=== PATIENT | female | born 1955 | race Caucasian/White ===

== ENCOUNTER 2016-08-15 15:19 | Emergency (ER) | payer MEDICARE, MEDICAID ==
[2016-08-15] MEDS ORDERED: NITROGLYCERINE 2 % OINTMENT PACK TOP STA (15:48)
[2016-08-15 15:55] VITALS: BMI 28.3
--- NOTE | 2016-08-15 15:55 | EDPRACDOC ---
- General Information Stated Complaint: CHEST PAIN Time Seen by Provider: 08/15/16 15:37 Information Source: Patient Mode of Arrival: Ambulance Home Medications: Home Medications Aspirin [Aspirin EC] 81 mg PO DAILY 03/22/15 Atorvastatin Calcium [Lipitor] 80 mg PO HS 03/22/15 Carvedilol [Coreg] 12.5 mg PO BID 03/22/15 Clopidogrel Bisulfate [Plavix] 75 mg PO DAILY 03/22/15 Lisinopril [Zestril] 2.5 mg PO DAILY 03/22/15 Potassium Chloride [Klor-Con M20] 40 meq PO DAILY 03/22/15 Omeprazole 40 mg PO DAILY 11/23/15 Nitroglycerin [Nitrostat] 0.4 mg SL [id number] PRN 12/29/15 Allergies/Adverse Reactions: Allergies Allergy/AdvReac Type Severity Reaction Status Date / Time Sulfa (Sulfonamide Allergy Severe Nausea/Vomi Verified 07/08/16 10:41 Antibiotics) ting [Sulfa(Sulfonamide Antibiotics)] naproxen AdvReac Sweating Verified 07/08/16 10:41 - History of Present Illness HPI: PT PRESENTS WITH SUBSTERNAL CHEST PAIN WHICH BEGAN AROUND 1200 TODAY. GIVEN ASPIRIN BY EMS. NO NITROGLYCERIN. SHE REPORTS PAIN LIKE PRIOR NV'S. SHE HAS 8 STENTS WHICH HAVE BEEN PLACED SINCE 2014 AT [place]. Chest Pain Location: Reports: Substernal Symptoms Occur: Reports: At Rest Cardiac History of: Reports: Similar Pain in Past, [place], Cardiac Cath, Stress Test , Stent Pain Status: Present Now Pain Description: Reports: Pressure Pain Severity: Moderate Pain Worsens With: Reports: Nothing Pain Improves With: Reports: Nothing Associated Signs and Symptoms: Reports: SOB. Denies: Abdominal Pain, Vomiting ED Past Medical History - History Reviewed Yes Nurses notes reviewed and agree except as marked - Patient Medical History Cardiac History: Reports: Coronary Artery Disease, Hypertension, Heart Attack, Cardiac Catheterization (PCTI X 5), Hypercholesterolemia, Syncope (10/28/13) Respiratory History: Reports: COPD GI/ History: Reports: Urinary Tract Infection, Gastroesophageal Reflux Musculoskeletal History: Reports: Arthritis, Osteoarthritis (With degenerative joint disease) Psychological History: Reports: Depression, Anxiety. Denies: Substance Use Disorder Systemic History: Reports: Cancer, Anemia ( CHILD) Additional Past Medical History: Chronic Back Pain Surgical History: Reports: Hysterectomy, Angioplasty, Cardiac Catheterization ( PCTI X 5), Other (Bilateral tubal ligation.) - Family Medical History Reports: Diabetes (GRANDMOTHER), Cancer ([facility]UN[facility]- BREAST CANCER), Cardiac Disorders (Father with coronary artery disease, age 59.) - Social Medical History Smoking Status: Former smoker Social History: Denies: Substance Use Disorder Lives In: Home EDM Review of Systems - Review of Systems ROS Negative Except as Marked: Yes All systems reviewed and were negative except as marked Constitutional: negative: Fever Respiratory: Shortness of Breath Cardiovascular: Chest Pain Gastrointestinal: negative: Pain, Vomiting Neurological: Headache - Physical Exam Constitutional: Alert Oriented to: Time, Person, Place Last recorded Vital Signs: Last Vital Signs Temp Pulse 66 08/15/16 15:42 Resp 20 08/15/16 15:42 BP 157/83 08/15/16 15:42 Pulse Ox 97 08/15/16 15:42 Oxygen Pulse Oxygen Saturation 97 O2 Device Room Air Oxygen Flow Rate Fraction of Inspired Oxygen ( FIO2) - HEENT Head: negative: Deformity, Laceration Eye Exam: negative: Conjunctival Injection, Pale Conjunctiva Nose: negative: Congestion, Discharge Neck: negative: Limited ROM - Respiratory/Cardiovascular Respiratory: Normal - CTA. negative: Accessory Muscle Use, Diminished, Tachypnea Cardiovascular: negative: Bradycardia, Tachycardia, Irregular - GI Auscultation: Normal Palpation: Normal Tenderness: Non tender - Musculoskeletal Extremities: Pedal Pulse (PALPABLE), Radial Pulse (PALPABLE). negative: Calf Tenderness - Integumentary Skin: Warm, Dry. negative: Rash - Neurologic Memory Impaired: Normal Motor Function: Normal Mood Description: Anxious, Appropriate Thought: Coherent Perception: Normal ED Chest Pain Exam - Respiratory/Cardiovascular Chest Palpation: negative: Tender, Reproduces Pain - Action Patient received Aspirin within last 24 hours?: Yes ASA given in the ED: No - Results 08/15/16 15:36 08/15/16 15:36 - EKG EKG #1 EKG Time: 15:30 -: Yes EKG interpreted by me Rate: bpm: 72 [place]: Normal Rhythm: NSR Block: None Hypertrophy: None ST: Normal Decision Time to Discharge: 19:22 - Departure Yes I personally saw and evaluated the patient. Disposition: Home Condition: Stable Final Diagnosis: Chest pain Qualifiers: Chest pain type: unspecified Qualified Code(s): R07.9 - Chest pain, unspecified Instructions: Chest Pain (ED), Chest Wall Pain Education/Counseling Given To: Patient Education/Counseling Given Regarding: Diagnosis, Treatment, Prognosis, Follow Up Referrals: Keegan Clarke MD [Primary Care Provider] - Call for Appointment Additional Instructions: CONTINUE HOME MEDICATIONS.
[2016-08-15] MEDS: NITROGLYCERINE 0.4 MG TAB SL STA ×3 (15:59→16:09)
[2016-08-15 16:11] LABS: AUTOMATED BASOPHIL 0.6 % (0-2); AUTOMATED EOSINOPHIL 1.8 % (0-5); AUTOMATED LYMPH 27.9 % (17-44); AUTOMATED MONOCYTE 5.7 % (3-10); MPV 8.7 fL (7.4-10.4)
[2016-08-15 16:22] LABS: BLOOD UREA NITROGEN 16 MG/DL (7-17); CALCIUM 9.2 MG/DL (8.4-10.2); CALCULATED OSMOLALITY 273 MOs/Kg (270-290); CHLORIDE 105 mEq/L (98-107); CPK TOTAL WITH POSSIBLE MB 94 IU/L (30-134); GLUCOSE 111 MG/DL (70-99); SODIUM LEVEL 141 mEq/L (137-146); TOTAL PROTEIN 7.5 G/DL (6.3-8.2)
[2016-08-15 16:26] LABS: PARTIAL THROMB. TIME 25.1 SEC (22-35)
--- NOTE | 2016-08-15 16:37 | DIRPT ---
CLINICAL DATA: Substernal chest pain today. History of myocardial infarction. EXAM: CHEST 2 VIEW COMPARISON: Radiographs 04/05/2016. CT 12/15/2015. FINDINGS: The heart size and mediastinal contours are stable. There is mild linear scarring or atelectasis at both lung bases. No edema, confluent airspace opacity or pleural effusion. The bones appear unremarkable. Telemetry leads overlie the chest. IMPRESSION: No active cardiopulmonary process. Electronically Signed By: Dionisio Jones M.D. On: 08/15/2016 16:34
[2016-08-15] MEDS ORDERED: MORPHINE 4 MG/ML INJECTION IV ONE (17:23)
[2016-08-15] MEDS ORDERED: ACETAMINOPHEN 325 MG/TAB TABLET PO ONE (18:40)
[2016-08-15] MEDS ORDERED: OXYCODONE HCL 5 MG TABLET PO STA (18:40)
[2016-08-15 19:58] VITALS: BP 137/72; PULSE 71; TEMP 98.1
== END 2016-08-15 19:50 | disposition home or self-care (01) ==
LOC: ED 15:19
DX: R07.9 Chest pain, unspecified (principal); K21.9 Gastro-esophageal reflux disease without esophagitis; J44.9 Chronic obstructive pulmonary disease, unspecified; I25.10 Atherosclerotic heart disease of native coronary artery without angina pectoris; I10 Essential (primary) hypertension; E78.00 Pure hypercholesterolemia, unspecified; Z79.82 Long term (current) use of aspirin; I25.2 Old myocardial infarction; Z79.899 Other long term (current) drug therapy
CPT/HCPCS: 36415; 71020; 80053; 82550; 84484; 85025; 85610; 85730; 93005; 96374; 99285; A9270; J2270; J3490